=== PATIENT | female | born 1960 | race Caucasian/White ===

== ENCOUNTER 2016-11-01 14:21 | Emergency (ER) | payer MEDICAID ==
[~2016-11-01] VITALS: Ht 149.9 cm; Wt 71.1 kg
[2016-11-01 15:21] LABS: BLOOD UREA NITROGEN 25 mg/dL (7-18)
[2016-11-01] MEDS ORDERED: SODIUM CHLORIDE FLUSH 10ML SYR IVF ONE (15:30)
[2016-11-01] MEDS ORDERED: SODIUM CHLORIDE 0.9% 1,000ML IVBOLUS ONE (15:30)
[2016-11-01] MEDS ORDERED: DIAZEPAM 5 MG/ML, 10ML VIAL IVPush ONE (15:30)
[2016-11-01] MEDS ORDERED: DIAZEPAM 5 MG/ML, 2ML ONE (16:05)
[2016-11-01 17:19] VITALS: BP 108/65
== END 2016-11-01 17:21 | disposition home or self-care (01) ==
LOC: ED 17:15
DX: M79.1 Myalgia (principal)
CPT/HCPCS: 36415; 80048; 82040; 85025; 93970; 96361; 96374; 99285; J3360; J7030

== ENCOUNTER 2018-11-02 18:12 | Emergency (ER) | payer MEDICAID ==
[~2018-11-02] VITALS: Ht 149.9 cm; Wt 77.2 kg
--- NOTE | 2018-11-02 18:51 | NUR ---
pt in bed at this time. warm blanket provided. call light in reach and pt encouraged to call with any wants or needs.
[2018-11-02 18:54] LABS: BASOPHILS # (AUTO) 0.06 x10^3/uL (0-0.1); BASOPHILS % (AUTO) 1 % (0-1); EOSINOPHILS # (AUTO) 0.27 x10^3/uL (0-0.4); EOSINOPHILS % (AUTO) 4 % (1-7); LYMPHOCYTES % (AUTO) 37 % (22-44); MD NO; MEAN CORPUSCULAR HEMOGLOBIN 28.4 pg (27.0-34.8); MEAN CORPUSCULAR VOLUME 86.1 fL (80-100); MEAN PLATELET VOLUME 8.2 fL (7.4-10.4); MONOCYTES # (AUTO) 0.54 x10^3/uL (0.2-0.8); MONOCYTES % (AUTO) 8 % (2-9); NEUTROPHILS # (AUTO) 3.63 x10^3/uL (1.8-6.8); NEUTROPHILS % (AUTO) 51 % (42-75); PLATELET COUNT 282 x10^3/uL (130-400); RED BLOOD COUNT 4.02 x10^6/uL (3.82-5.3); RED CELL DISTRIBUTION WIDTH 15.6 % (9.6-15.2)
[2018-11-02 19:05] LABS: ALBUMIN 3.2 g/dL (3.4-5.0); ANION GAP 6 mmol/L (5-15); CALCIUM 8.4 mg/dL (8.5-10.1); CHLORIDE 107 mmol/L (98-107); CREATININE 0.76 mg/dL (0.55-1.02)
[2018-11-02 19:06] VITALS: BP 114/67
== END 2018-11-02 19:49 | disposition home or self-care (01) ==
LOC: ED 19:43
DX: M72.2 Plantar fascial fibromatosis (principal); M79.672 Pain in left foot
CPT/HCPCS: 36415; 80048; 82040; 85025; 99283

== ENCOUNTER 2020-09-23 19:46 | Emergency (ER) | payer MEDICAID ==
[~2020-09-23] VITALS: Ht 149.9 cm; Wt 74.5 kg
[2020-09-23 19:53] VITALS: BP 140/57
--- NOTE | 2020-09-23 20:10 | NUR ---
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
[2020-09-23] MEDS ORDERED: KETOROLAC 30 MG/1 ML ONE (20:58)
[2020-09-23] MEDS ORDERED: KETOROLAC 30 MG/1 ML IM ONE (21:00)
[2020-09-23] MEDS ORDERED: METHOCARBAMOL 750 MG TABLET PO ONE (21:00)
[2020-09-23] MEDS ORDERED: METHOCARBAMOL 750 MG TABLET ONE (21:06)
== END 2020-09-23 21:54 | disposition home or self-care (01) ==
LOC: ED 21:29
DX: M79.652 Pain in left thigh (principal); M79.662 Pain in left lower leg; Z72.9 Problem related to lifestyle, unspecified
CPT/HCPCS: 93971; 96372; 99284; J1885